=== PATIENT | male | born 1955 | race Two or more races ===

== ENCOUNTER 2017-01-22 15:18 | Emergency (ER) | payer BC ==
[~2017-01-22] VITALS: Ht 172.7 cm; Wt 62.1 kg
[2017-01-22] MEDS ORDERED: BUDE10.2 INH (15:24)
[2017-01-22] MEDS ORDERED: ASPIRIN 325 MG TABLET ONE (15:27)
[2017-01-22] MEDS ORDERED: ASPIRIN 325 MG TABLET PO ONE (15:30)
--- NOTE | 2017-01-22 15:30 | NUR ---
BIB [facility] 87, C/O NON-RADIATING CHEST PAIN WHILE AT WORK SINCE 1400, PARTIAL RELIEF AFTER NITRO SPRAY IN THE FIELD. PT AAOX3. CURRENT PAIN RATE 2/10. NAD NOTED. SEEN BY MD. SAFETY AND COMFORT MEASURES PROVIDED. WILL MONITOR.
--- NOTE | 2017-01-22 15:35 | NUR ---
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
[2017-01-22 15:36] LABS: BASOPHILS % (AUTO) 0.3 % (0.0-2.0); EOSINOPHILS # (AUTO) 1.1 /CMM (0.0-0.7); EOSINOPHILS % (AUTO) 11.6 % (0.0-6.0); HEMATOCRIT 41 % (39-51); LYMPHOCYTES % (AUTO) 22.4 % (20.0-44.0); MEAN CORPUSCULAR HEMOGLOBIN 29 PG (26.0-33.0); MEAN CORPUSCULAR HGB CONC 34 g/dl (31.0-36.0); MEAN CORPUSCULAR VOLUME 85 fL (80-96); MONOCYTES # (AUTO) 0.9 /CMM (0.1-1.30); MONOCYTES % (AUTO) 9.6 % (2.0-12.0); NEUTROPHILS # (AUTO) 5.1 /CMM (1.8-8.9); NEUTROPHILS % (AUTO) 56.1 % (43.0-81.0); PLATELET COUNT (AUTO) 253 /CMM (150-450); RDW COEFFICIENT OF VARIATION 12.6 (11.5-15.0); RED BLOOD CELL COUNT(AUTO) 4.88 MIL/uL (4.5-6.0); WHITE BLOOD COUNT (AUTO) 9.1 K/uL (4.3-11.0)
--- NOTE | 2017-01-22 15:36 | NUR ---
PT MEDICATED ORDERED.
[2017-01-22 15:47] LABS: CALCIUM, SERUM 8.8 mg/dL (8.5-10.1); CARBON DIOXIDE 28 mmol/L (21-32); CHLORIDE 102 mmol/L (98-107); GFR 76 mL/min (>60); GLUCOSE 96 mg/dL (74-106); POTASSIUM 3.8 mmol/L (3.5-5.1); SODIUM SERUM 137 mmol/L (136-145); UREA NITROGEN, BLOOD 18 mg/dL (7-18)
[2017-01-22 15:52] LABS: INR 1.07 (0.87-1.13); PROTHROMBIN TIME 11.1 SECS (9.5-12.7)
[2017-01-22 15:56] LABS: TROPONIN I < 0.017 ng/mL (0.00-0.056)
[2017-01-22 16:08] LABS: D-DIMER 0.25 mg/L(FEU (0.17-0.50)
[2017-01-22 16:48] VITALS: BP 138/70
--- NOTE | 2017-01-22 16:49 | NUR ---
Patient discharged to home in stable condition. Written and verbal after care instructions given. Patient verbalizes understanding of instruction.
== END 2017-01-22 16:49 | disposition home or self-care (01) ==
LOC: ER 15:20
DX: R07.9 Chest pain, unspecified (principal); J18.9 Pneumonia, unspecified organism; R91.1 Solitary pulmonary nodule; I10 Essential (primary) hypertension; J44.9 Chronic obstructive pulmonary disease, unspecified; Z79.82 Long term (current) use of aspirin; Z87.891 Personal history of nicotine dependence
CPT/HCPCS: 36415; 71010-TC; 80048-TC; 84484-TC; 85025-TC; 85378-TC; 85730-TC; A4606; Z7610